=== PATIENT | male | born 2000 | race Caucasian/White ===

== ENCOUNTER 2024-01-20 21:01 | Emergency (ER) | payer MEDICAID ==
[~2024-01-20] VITALS: Ht 177.8 cm; Wt 63.5 kg
[2024-01-20 21:20] VITALS: BP_SYST 132; PULSE 109; RESP 20; TEMP 97.6; O2SAT 100
[2024-01-20 22:27] LABS: BASOPHILS % (AUTO) 0.3 % (0.0-2.0); HEMATOCRIT 45.6 % (36-54); HEMOGLOBIN 15.7 g/dL (14.0-18.0); LYMPHOCYTES # (AUTO) 1.3 K/uL (1.0-5.5); LYMPHOCYTES % (AUTO) 8.4 % (20.5-51.5); MEAN CORPUSCULAR HEMOGLOBIN 29 pg (27-31); MEAN CORPUSCULAR HGB CONC 35 % (32-36); MEAN CORPUSCULAR VOLUME 85 fL (79.0-98.0); MONOCYTES # (AUTO) 0.9 K/uL (0.0-1.0); MONOCYTES % (AUTO) 5.7 % (1.7-9.3); NEUTROPHILS # (AUTO) 13.6 K/uL (1.8-7.7); NEUTROPHILS % (AUTO) 85.6 % (40.0-70.0); PLATELET COUNT (AUTO) 304 K/uL (130-430); RED CELL DISTRIBUTION WIDTH 13.7 % (9.0-15.0); WHITE BLOOD COUNT (AUTO) 15.9 K/uL (4.8-10.8)
[2024-01-20] MEDS: LORazepam 2 MG/ML VIAL IVP ONE (22:51)
[2024-01-20] MEDS: NACL 0.9% 1,000 ML IV ONE (22:53)
[2024-01-20 23:29] LABS: ALANINE AMINOTRANSFERASE 32 U/L (12-78); ALBUMIN 4.9 g/dL (3.4-4.8); ANION GAP 22 (5-15); ASPARTATE AMINOTRANSFERASE 26 U/L (10-37); BILIRUBIN,DIRECT 0.2 mg/dL (0.0-0.3); CALCIUM 9.7 mg/dL (8.4-11.0); CARBON DIOXIDE 17 mmol/L (23-29); CHLORIDE 96 mmol/L (98-107); CREATININE 1.23 mg/dL (0.55-1.30); GFR AFRICAN AMERICAN 94 mL/min (>90); GLUCOSE 84 mg/dL (74-106); LIPASE 25 U/L (16-77); POTASSIUM 4.7 mmol/L (3.5-5.1); SODIUM SERUM 135 mmol/L (136-145); TOTAL BILIRUBIN 1.1 mg/dL (0.0-1.0); TOTAL PROTEIN, SERUM 9.1 g/dL (6.4-8.3); UREA NITROGEN, BLOOD 24 mg/dL (8-21)
[2024-01-20 23:36] LABS: GFR NON AFRICAN-AMERICAN 78 mL/min (>90)
[2024-01-20 23:37] LABS: ALCOHOL, BLOOD < 3 mg/dL (<10)
[2024-01-21 00:17] VITALS: BP_SYST 132; PULSE 109; RESP 20; TEMP 97.6; O2SAT 100
== END 2024-01-21 00:16 | disposition home or self-care (01) ==
LOC: SED 21:01
DX: F10.129 Alcohol abuse with intoxication, unspecified (principal); R53.1 Weakness; R10.9 Unspecified abdominal pain; R11.0 Nausea; Y90.0 Blood alcohol level of less than 20 mg/100 ml
CPT/HCPCS: 99283; 96374; 96361; 80076; 80048; 83690; 85025; 36415; G0482; J2060; J7030